=== PATIENT | female | born 1970 | race Hispanic/Latino ===

== ENCOUNTER 2017-03-08 22:47 | Inpatient (IN) | payer MEDICAID ==
[2017-03-08 22:52] VITALS: O2SAT 100
--- NOTE | 2017-03-08 23:02 | ED PDOC ---
Psych Transfer Clearance - Clearance Statement Clearance Statement: Reviewed vital signs, lab results and transfer papers. Patient clinically stable for psychiatric admission.
[2017-03-09] MEDS ORDERED: DiphenhydrAMINE 50 mg/ml Inj IM PRN (00:17)
[2017-03-09] MEDS ORDERED: Magnesium Hydroxide Susp 30 ml UD PO PRN (00:17)
[2017-03-09] MEDS ORDERED: Alum-Mag Hydrox-Simethicone Susp (30 mL) PO PRN (00:17)
--- NOTE | 2017-03-09 00:59 | CP.PCM.CON ---
History of Present Illness - History of Present Illness History of Present Illness: Attending: Dr Swenson PCP: Carey Maguire MD Reason for consult: management of Blood Pressure Chief complaint: Suicide Attempt HPI: 46 years old female with hx of Depressive disorder following up with Psychiatrist Dr nichols , transferred from [facility] for inpatient Psychiatric treatment. She was admitted to the [facility] on 03/07/17 after being found on the floor convulsing with nearby empty bottle of Xanax. This was a Suicide attempt because Depression. She was discharged and transferred to the [facility] for inpatient management. Here her blood pressure is elevated 160/113mmHG. No headaches, dizziness, nausea, vomits, SOB nor chest pain. PMH: Major Depression; arthritis PSH: No Surgical hx SH: Hx of Opoid abuse; smokes Cigars; No alcohol; Live with family; FH: Mother Alcoholic Allergies: Sulfa; Ceclor; Bacitracin; Mobic Review of Systems - Constitutional Constitutional: Anorexia. absent: Chills, Fever, Lethargy - EENT Eyes: absent: Diplopia, Photophobia, Requires Corrective Lenses, Sees Flashes Ears: absent: Decreased Hearing, Ear Discharge, Ear Pain, Tinnitus Nose/Mouth/Throat: absent: Epistaxis, Nasal Congestion, Nasal Discharge, Sinus Pain, Sinus Pressure - Cardiovascular Cardiovascular: absent: Chest Pain, Dyspnea, Edema - Respiratory Respiratory: absent: Cough, Dyspnea, Wheezing - Gastrointestinal Gastrointestinal: absent: Abdominal Pain, Constipation, Diarrhea, Nausea, Vomiting - Genitourinary Genitourinary: absent: Dysuria, Flank Pain, Hematuria, Urinary Frequency - Musculoskeletal Musculoskeletal: absent: Arthralgias, Muscle Cramps, Muscle Weakness, Numbness - Integumentary Integumentary: absent: Pruritus, Rash, Skin Ulcer, Sores, Striae, Swelling - Neurological Neurological: Tremor. absent: Confusion, Focal Weakness, Headaches - Psychiatric Psychiatric: Anxiety, Depression. absent: Panic Attacks - Endocrine Endocrine: absent: Palpitations, Polydipsia, Polyphagia, Polyuria - Hematologic/Lymphatic Hematologic: absent: Easy Bleeding, Easy Bruising Past Patient History - Past Social History Chewing Tobacco Use: No Cigar Use: Yes Alcohol: None Drugs: Denies Home Situation {Lives}: With Family - CARDIAC Hx Cardiac Disorders: No - PULMONARY Hx Respiratory Disorders: No - NEUROLOGICAL Hx Neurological Disorder: No - HEENT Hx HEENT Problems: No - RENAL Hx Chronic Kidney Disease: No - ENDOCRINE/METABOLIC Hx Endocrine Disorders: No - HEMATOLOGICAL/ONCOLOGICAL Hx Blood Disorders: No - INTEGUMENTARY Hx Dermatological Problems: No - MUSCULOSKELETAL/RHEUMATOLOGICAL Hx Arthritis: Yes - GASTROINTESTINAL Hx Gastrointestinal Disorders: No - GENITOURINARY/GYNECOLOGICAL Hx Genitourinary Disorders: No - PSYCHIATRIC Hx Depression: Yes - SURGICAL HISTORY Hx Surgeries: No - ANESTHESIA Hx Anesthesia: No Meds Allergies/Adverse Reactions: Allergies Allergy/AdvReac Type Severity Reaction Status Date / Time Sulfa (Sulfonamide Allergy ANAPHYLAXIS Verified 03/08/17 22:49 Antibiotics) - Medications Medications: Current Medications Acetaminophen (Tylenol 325mg Tab) 650 mg PO Q4 PRN PRN Reason: Pain, moderate (4-7) Al Hydrox/Mg Hydrox/Simethicone (Maalox Plus 30 Ml) 30 ml PO Q4 PRN PRN Reason: Dyspepsia Diphenhydramine HCl (Benadryl) 50 mg IM Q6 PRN PRN Reason: Extrapyramidal S/S Unable PO Diphenhydramine HCl (Benadryl) 50 mg PO HS PRN PRN Reason: Sleep Haloperidol (Haldol) 5 mg PO Q4 PRN PRN Reason: Agitation Haloperidol Lactate (Haldol) 5 mg IM Q4 PRN PRN Reason: Agitation, Unable to Take PO Lorazepam (Ativan) 2 mg IM Q4 PRN PRN Reason: Anxiety/Agitation,Unable PO Lorazepam (Ativan) 2 mg PO Q4 PRN PRN Reason: Anxiety/Agitation Magnesium Hydroxide (Milk Of Magnesia) 30 ml PO HS PRN PRN Reason: Constipation Physical Exam - Constitutional Appears: No Acute Distress - Head Exam Head Exam: ATRAUMATIC, NORMAL INSPECTION, NORMOCEPHALIC - Eye Exam Eye Exam: EOMI, Normal appearance Pupil Exam: NORMAL ACCOMODATION, PERRL - ENT Exam ENT Exam: Mucous Membranes Moist, Normal Exam, Normal External Ear Exam, Normal Oropharynx - Neck Exam Neck exam: Positive for: Full Rom, Normal Inspection. Negative for: Lymphadenopathy, Tenderness - Respiratory Exam Respiratory Exam: Clear to Auscultation Bilateral. absent: Rales, Rhonchi, Wheezes - Cardiovascular Exam Cardiovascular Exam: REGULAR RHYTHM, RRR, +S1, +S2. absent: Gallop, JVD - GI/Abdominal Exam GI & Abdominal Exam: Normal Bowel Sounds, Soft. absent: Mass, Organomegaly, Tenderness - Rectal Exam Rectal Exam: Deferred - Extremities Exam Extremities exam: Positive for: full ROM, normal inspection. Negative for: calf tenderness, pedal edema - Back Exam Back exam: NORMAL INSPECTION. absent: CVA tenderness (L), CVA tenderness (R) - Neurological Exam Neurological exam: Alert, CN II-XII Intact, Oriented x3, Reflexes Normal - Psychiatric Exam Psychiatric exam: Normal Affect, Normal Mood - Skin Skin Exam: Dry, Intact, Normal Color, Warm Results - Vital Signs Recent Vital Signs: Last Vital Signs Temp 98 F 03/08/17 22:49 Pulse 77 03/08/17 22:49 Resp 18 03/08/17 22:49 BP 141/82 03/08/17 22:49 Pulse Ox 100 03/08/17 22:49 - EKG Data EKG comments: Sinus Tachycardic 111/min - Imaging and Cardiology Chest x-ray Status: Report reviewed by me Additional comment: 03/07/17 Mild Hypoaerated no Infiltrates Assessment & Plan - Assessment and Plan (Free Text) Assessment: #. Major Depression #. Suicide Attempt #. Elevated Blood Pressure Plan: 46 years old female with hx of Depressive disorder following up with Psychiatrist Dr Nichols , transferred from [facility] for inpatient Psychiatric treatment after a suicide attempt, overdose on Xanax and Effexer. Here her blood pressure is elevated 160/113mmHG. #. Major Depression #. Suicide Attempt - Psychiatric management #. Elevated Blood Pressure - Metoprolol 25mg PO Q12H #. Code Status; Full - Date & Time Date: 03/09/17 Time: 00:59
[2017-03-09 07:47] LABS: T4 10.5 ug/dl (5.5-11.0)
[2017-03-09 08:00] LABS: THYROID STIMULATING HORMONE 2.09 mIU/ML (0.46-4.68)
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
[2017-03-09] MEDS: Venlafaxine 150 mg ER Cap PO SCH (17:00)
[2017-03-10] MEDS: Venlafaxine 150 mg ER Cap PO SCH (08:55)
--- NOTE | 2017-03-10 15:38 | PCM.PYCHPN ---
Psychiatric Progress Note - Psychiatric Progress Note Patient seen today, length of contact: chart reviewed case discusswith team Patient Chief Complaint: voluntary admission status post overdose imulsive non planned Problems Identified/Issues Discussed: feeling anxious , feels like withdrawing, team called pharmacy pt ws oneffexor xr 37.5 mg daily alprazolam 2mg p 3x day, and lamictal 100mg po bid,, pt has received several doses of prn lorazepam Medical Problems: per chart Diagnostic Results: per psychiatry per medicine per nursing per social work DSM 5 Symptoms Update: mood changes, feeling anxious Medication Change: Yes (klonopin 1mg po bid (start benzo taper), lamictal 100mg po bid ) Medical Record Reviewed: Yes Mental Status Examination - Cognitive Function Orientation: Person, Place, Situation, Time Attention: WNL Concentration: WNL Association: WN Fund of Knowledge: [facility] Decription of patient's judgement and insights: impaired - Mood Mood: Depressed, Anxious - Affect Affect: Constricted - Speech Speech: Soft - Formal Thought Process Formal Thought Process: No Impairment Goal/Treatment Plan - Goal/Treatment Plan Progress Toward Problem(s) and Goals/Treatment Plan: admission per attending vital signs and clinical observations per protocol and per clinical status hospitalist consult etoh withdrawal protocol lorazepam being used (pt with alprazolam use) will attempt further to wean pt off of benzodiazepines effexor xr 150mg po day, start benzodizaepine tabper 1mg po bid, start lamictal 100mg po bid discharge planning in progress Estimated Date of D/C: 03/14/17 - Smoking Cessation Smoking Cessation Initiated: No Reason for not providing: deferred
--- NOTE | 2017-03-10 16:59 | PCM.PYCHPN ---
Psychiatric Progress Note - Psychiatric Progress Note Patient seen today, length of contact: chart reviewed case discusswith team Patient Chief Complaint: voluntary admission status post overdose imulsive non planned Problems Identified/Issues Discussed: feeling anxious , feels like withdrawing, team called pharmacy pt ws oneffexor xr 37.5 mg daily alprazolam 2mg p 3x day, and lamictal 100mg po bid,, pt has received several doses of prn lorazepam Medical Problems: per chart Diagnostic Results: per psychiatry per medicine per nursing per social work Medication Change: Yes (klonopin 1mg po bid (start benzo taper), lamictal 100mg po bid ) Medical Record Reviewed: Yes Mental Status Examination - Cognitive Function Orientation: Person, Place, Situation, Time Attention: WNL Concentration: WNL Association: WNL Fund of Knowledge: WN Decription of patient's judgement and insights: impaired - Mood Mood: Depressed, Anxious - Affect Affect: Constricted - Speech Speech: Soft - Formal Thought Process Formal Thought Process: No Impairment Goal/Treatment Plan - Goal/Treatment Plan Need for Continued Stay: Remain at risks for inpatient hospitalization, Severe depression anxiety, Severe functional impairment Progress Toward Problem(s) and Goals/Treatment Plan: admission per attending vital signs and clinical observations per protocol and per clinical status hospitalist consult etoh withdrawal protocol lorazepam being used (pt with alprazolam use) will attempt further to wean pt off of benzodiazepines effexor xr 150mg po day, start benzodizaepine taper 1mg po bid, start lamictal 100mg po bid discharge planning in progress Estimated Date of D/C: 03/14/17 - Smoking Cessation Smoking Cessation Initiated: No Reason for not providing: deferred
[2017-03-11] MEDS: Venlafaxine 150 mg ER Cap PO SCH (10:09)
--- NOTE | 2017-03-11 12:21 | PCM.PYCHPN ---
Psychiatric Progress Note - Psychiatric Progress Note Patient seen today, length of contact: in treatment team Patient Chief Complaint: i'm starting to feel better Problems Identified/Issues Discussed: pt less tremulous per her and staff reports. she states she is starting to feel less anxious- improves after she takes her medications in the am. she is agreeing to take klonopin, but seems to prefer xanax and minimizes the risks of dependence. she is alert, interacting with peers and staff. no aggression. Medication Change: No ( ) Medical Record Reviewed: Yes Mental Status Examination - Cognitive Function Orientation: Person, Place, Situation, Time Memory: Intact Attention: WNL Concentration: WNL Association: WN Fund of Knowledge: WNL - Mood Mood: Anxious - Affect Affect: Constricted - Speech Speech: Soft - Formal Thought Process Formal Thought Process: No Impairment Psychotic Thoughts and Behaviors: pt denies any a/v hallucinations - Suicidal Ideation Suicidal Ideation: No - Homicidal Ideation Homicidal Ideation: No Goal/Treatment Plan - Goal/Treatment Plan Need for Continued Stay: Remain at risks for inpatient hospitalization, Severe depression anxiety, Severe functional impairment Progress Toward Problem(s) and Goals/Treatment Plan: major depression, recurrent moderate panic disorder continue with current treatment t/c starting to taper klonopin later this week or in conjunction with outpt psychiatrist disposition planning Estimated Date of D/C: 03/14/17
[2017-03-12 06:45] VITALS: RESP 18
[2017-03-12] MEDS: Venlafaxine 150 mg ER Cap PO SCH (08:54)
--- NOTE | 2017-03-12 12:00 | PCM.PYCHPN ---
Psychiatric Progress Note - Psychiatric Progress Note Patient seen today, length of contact: discussed with team Patient Chief Complaint: i feel much less anxious Problems Identified/Issues Discussed: pt states she is feeling much better. she did have trouble sleeping and feels trazodone didn't help and is now making her feel "washed out" now. she reports that remeron was helpful in the past. she denies any suicidal thoughts. and she wants to go home soon. Medication Change: Yes (dc trazodone and start remeron) Medical Record Reviewed: Yes Mental Status Examination - Cognitive Function Orientation: Person, Place, Situation, Time Memory: Intact Attention: WNL Concentration: WNL Association: [facility] Fund of Knowledge: [facility] Decription of patient's judgement and insights: fair - Mood Mood: Anxious - Affect Affect: Constricted - Speech Speech: Soft - Formal Thought Process Formal Thought Process: No Impairment Psychotic Thoughts and Behaviors: pt denies any a/v hallucinations - Suicidal Ideation Suicidal Ideation: No - Homicidal Ideation Homicidal Ideation: No Goal/Treatment Plan - Goal/Treatment Plan Need for Continued Stay: Remain at risks for inpatient hospitalization, Severe depression anxiety, Severe functional impairment Progress Toward Problem(s) and Goals/Treatment Plan: major depression, recurrent moderate panic disorder continue with current treatment dc trazodone and start remeron disposition planning Estimated Date of D/C: 03/13/17
--- NOTE | 2017-03-13 08:38 | PCM.PYCHDC ---
Mental Status Examination - Mental Status Examination Orientation: Person, Place, Situation, Time Memory: Intact Mood: Anxious Affect: Broad Speech: Appropriate Attention: WNL Concentration: WNL Association: WNL Fund of Knowledge: WNL Formal Thought Process: No Impairment Description of patient's judgement and insight: fair Psychotic Thoughts and Behaviors: pt denies any a/v hallucinations Suicidal Ideation: No Current Homicidal Ideation?: No Plan: pt denies any suicidal or homicidal thoughts/plans Discharge Summary - Discharge Note Reason for Hospitalization: anxiety, overdose on medications Psychiatric History (includes Medical, Family, Personal Hx): history of anxiety , depression. no current providers Consultations:: List each consultation separately and include: 1. Reason for request. 2. Findings. 3. Follow-up Consultations: seen by the hospitalist Summary of Hospital Course include:: 1. Description of specific treatment plan utilized for patients during their course of treatmen. 2. Summarize the time- course for resolution of acute symptoms and/or regressed behaviors. 3. Describe issues identified and worked on during hospitalization. 4. Describe medication utilized. 5. Describe medical problems identified and treated. 6. Reassessment of suicide risk Summary of Hospital Course: pt was admitted to [facility] and oriented to the unit. she was seen by the hospitalist. she was placed on routine safety protocol. she was started back on her home medications by the covering provider. she was started on klonopin to help prevent withdrawal complications- the intent is to use klonopin to help pt stop using xanax. her klonopin was reduced to 1mg bid. she had some break through anxiety, but remained motivated to taper off benzodiazapine medications. she particpated in groups, was social with her peers and was denying any suicidal or homicidal thoughts at the time of discharge. she was agreeing to follow up with outpatient providers. - Final Diagnosis (DSM 5) Condition upon Discharge: GOOD DSM 5: major depression recurrent moderate panic disorder Disposition: HOME/ ROUTINE Follow-up Treatment Plan: follow up with aftercare appointments as directed take medications as prescribed do not use alcohol, tobacco or other illicit substances call 911 if any suicidal or homicidal thoughts Prescriptions/Medication Reconciliation: clonazePAM [clonAZEPAM] 1 mg PO DAILY PRN #15 tab PRN Reason: Anxiety clonazePAM [Klonopin] 1 mg PO BID #30 tab lamoTRIgine [Lamictal] 100 mg PO BID #30 tab Metoprolol Tartrate [Lopressor] 25 mg PO Q12 #30 tab Mirtazapine [Remeron] 15 mg PO HS #15 tab Venlafaxine [Effexor XR] 150 mg PO DAILY #15 cer - Smoking Cessation Smoking Cessation Medication prescribed: No Reason for not providing: declines - Antipsychotic Medications Pt discharged on 2 or more routine antipsychotic medications: No
[2017-03-13 09:07] VITALS: BP 142/92; PULSE 69; TEMP 97.7
[2017-03-13] MEDS: Venlafaxine 150 mg ER Cap PO SCH (09:26)
== END 2017-03-13 13:49 | disposition home or self-care (01) | DRG 430 ==
LOC: H.ER 22:47 → H.PSYCH 23:01
PROVIDERS: ADMIT Psychiatry & Neurology Psychiatry; ATTEND Psychiatry & Neurology Psychiatry
PROC: GZHZZZZ Group Psychotherapy (ICD-10-PCS; principal; 2017-03-08)
PROC: GZ58ZZZ Individual Psychotherapy, Cognitive-Behavioral (ICD-10-PCS; 2017-03-08)
DX: F33.1 Major depressive disorder, recurrent, moderate (principal); F10.239 Alcohol dependence with withdrawal, unspecified; F41.0 Panic disorder [episodic paroxysmal anxiety]; F19.90 Other psychoactive substance use, unspecified, uncomplicated; F41.1 Generalized anxiety disorder; M19.90 Unspecified osteoarthritis, unspecified site; R03.0 Elevated blood-pressure reading, without diagnosis of hypertension; Z88.2 Allergy status to sulfonamides